=== PATIENT | male | born 1985 | race Caucasian/White ===

== ENCOUNTER 2023-07-07 07:03 | Emergency (ER) | payer BC, OTHER ==
[~2023-07-07] VITALS: Ht 185.4 cm; Wt 88.5 kg
[2023-07-07 07:17] VITALS: BP_SYST 152; PULSE 102; RESP 16; TEMP 99; O2SAT 98
[2023-07-07] MEDS: BACITRACIN 1 GM OINT TP ONE (08:22)
[2023-07-07] MEDS: DIPHTH,PERTUSS(ACELL),TET VAC 0.5 ML VIAL (Tdap) I.M. ONE (08:22)
[2023-07-07 08:32] VITALS: BP_SYST 152; PULSE 102; RESP 16; TEMP 99; O2SAT 98
== END 2023-07-07 08:31 | disposition home or self-care (01) ==
LOC: SED 07:03
DX: S61.012A Laceration without foreign body of left thumb without damage to nail, initial encounter (principal); Z88.1 Allergy status to other antibiotic agents; Z79.899 Other long term (current) drug therapy; W26.0XXA Contact with knife, initial encounter; Y93.89 Activity, other specified; Y92.89 Other specified places as the place of occurrence of the external cause; Y99.8 Other external cause status
CPT/HCPCS: 90715; 99283